=== PATIENT | male | born 1950 | race Caucasian/White ===

== ENCOUNTER 2017-05-05 16:42 | Emergency (ER) | payer MEDICARE ==
[~2017-05-05] VITALS: Ht 180.3 cm; Wt 90.7 kg
[~2017-05-05 16:42] MED LIST: ASPI81EC PO; AZIT500 PO; CHOLESTEROL MED; CLOP75 PO; COLC.6 PO; CYCL10 PO; Coq-10100 MG PO; DIAZ5 PO; DIPH50 PO; ERGO50000 PO; FAMO40 PO; HYDMOR2 PO; HYDR1TAB94 PO; LYSINE; METO50ER PO; MULTIDOPHILUS; NITR.4SL SL; NORT75; OMEP10ER; OXYACE5T PO; PRAV20 PO; ROSU10TA PO; SAW PALMETTO; Saw Palmetto C1 EACH PO; TESTOSTERONE; UBID10 PO; VITAMIN C PO; VITAMIN D 3 PO; Zithromax250 MG PO; [UNRECOGNIZED DRUG - OTHER]
[2017-05-05 17:29] LABS: BASOPHILS ABSOLUTE AUTO 0.05 K/mm3 (0.00-0.23); BASOPHILS PERCENT AUTO 1 % (0-2); EOSINOPHILS ABSOLUTE AUTO 0.11 K/mm3 (0.00-0.68); EOSINOPHILS PERCENT AUTO 2 % (0-6); Hematocrit 46.4 % (37.0-53.0); Hemoglobin 15.2 g/dL (13.5-17.5); IMMATURE GRAN ABSOLUTE AUTO 0.02 K/mm3 (0.00-0.10); IMMATURE GRAN PERCENT AUTO 0 % (0-1); LYMPHOCYTES ABSOLUTE AUTO 1.48 K/mm3 (0.84-5.20); LYMPHOCYTES PERCENT AUTO 21 % (21-46); MONOCYTES ABSOLUTE AUTO 0.68 K/mm3 (0.16-1.47); MONOCYTES PERCENT AUTO 10 % (4-13); Mean Corpuscular HGB 31.5 pg (26.0-34.0); Mean Corpuscular HGB Conc 32.8 g/dL (31.5-36.5); Mean Corpuscular Volume 96 fL (80-100); Mean Platelet Volume 9.1 fL (9.1-12.4); NEUTROPHILS ABSOLUTE AUTO 4.77 K/mm3 (1.96-9.15); NEUTROPHILS PERCENT AUTO 67 % (41-73); Platelet Count 218 K/mm3 (150-400); RDW Coefficient Variation 12.8 % (11.7-14.2); RDW Standard Deviation 45.7 fL (35.1-46.3); Red Blood Cell Count 4.83 M/mm3 (4.30-5.90); White Blood Cell Count 7.11 K/mm3 (4.00-11.30)
[2017-05-05 17:45] LABS: Magnesium, Blood 2.4 mg/dL (1.6-2.4); Troponin I <0.015 ng/mL (0.000-0.040)
[2017-05-05 17:46] LABS: Alanine Aminotransfer (ALT/SGP 29 U/L (12-78); Albumin, Blood 4.1 g/dL (3.4-5.0); Albumin/Globulin Ratio 1.3 (0.8-1.8); Alk Phos 57 U/L (50-136); Anion Gap 9 mmol/L (6-16); Aspartate Aminotrans (AST/SGOT 20 U/L (12-37); Bilirubin, Total 0.3 mg/dL (0.1-1.0); Blood Urea Nitrogen 28 mg/dL (8-24); Bun/Creatinine Ratio 30.8 (12.0-20.0); CO2, Blood 24 mmol/L (21-32); Calcium, Blood 8.9 mg/dL (8.5-10.1); Chloride, Blood 105 mmol/L (98-108); Creatinine, Blood 0.91 mg/dL (0.60-1.20); Globulin, Blood 3.2 g/dL (2.2-4.0); Glomerular Filtration Rate >60 (60-); Glucose, Blood 100 mg/dL (70-99); Sodium, Blood 138 mmol/L (136-145); Total Protein, Blood 7.3 g/dL (6.4-8.2)
[2017-05-05] MEDS ORDERED: Lopressor 25 mg25 MG PO (18:17)
== END 2017-05-05 18:57 | disposition home or self-care (01) ==
LOC: ER 16:42
PROVIDERS: Emergency Medicine
DX: I10 Essential (primary) hypertension (principal); R00.2 Palpitations; Z88.1 Allergy status to other antibiotic agents; Z88.8 Allergy status to other drugs, medicaments and biological substances; Z79.899 Other long term (current) drug therapy; Z79.82 Long term (current) use of aspirin; Z79.891 Long term (current) use of opiate analgesic; I25.2 Old myocardial infarction
CPT/HCPCS: 36415; 71046; 80053; 83735; 83880; 84443; 84484; 85025; 93005; 93010; 99284

== ENCOUNTER 2017-10-02 10:43 | Inpatient (IN) | payer MEDICARE ==
[~2017-10-02] VITALS: Ht 180.3 cm; Wt 94.6 kg
[~2017-10-02 10:43] MED LIST changes: +Lopressor 25 mg25 MG PO
[2017-10-02] MEDS ORDERED: LOSA50 PO (19:21)
[2017-10-02] MEDS ORDERED: ZINC15 PO (19:22)
[2017-10-02] MEDS ORDERED: MONT10T PO (19:22)
[2017-10-02] MEDS ORDERED: VITAMIN B122500 MCG PO (19:23)
[2017-10-02] MEDS ORDERED: ERGO400 PO (19:24)
[2017-10-04 05:39] LABS: International Normalized Ratio 1.02; Prothrombin Time Results 10.5 Sec (9.7-11.5)
== END 2017-10-05 11:15 | disposition home or self-care (01) | DRG 502 ==
LOC: ORSCSDS 10:43 → SURS 10:46 → ORSCSDS 10-05 07:30 → SURS 10-05 11:15
PROVIDERS: Orthopaedic Surgery
PROC: 0LS30ZZ Reposition Right Upper Arm Tendon, Open Approach (ICD-10-PCS; principal; 2017-10-05)
PROC: 0LQ14ZZ Repair Right Shoulder Tendon, Percutaneous Endoscopic Approach (ICD-10-PCS; 2017-10-05)
PROC: 0RHJ04Z Insertion of Internal Fixation Device into Right Shoulder Joint, Open Approach (ICD-10-PCS; 2017-10-05)
PROC: 0RNJ4ZZ Release Right Shoulder Joint, Percutaneous Endoscopic Approach (ICD-10-PCS; 2017-10-05)
DX: M75.111 Incomplete rotator cuff tear or rupture of right shoulder, not specified as traumatic (principal); S46.111A Strain of muscle, fascia and tendon of long head of biceps, right arm, initial encounter; M75.41 Impingement syndrome of right shoulder; M19.011 Primary osteoarthritis, right shoulder; I25.10 Atherosclerotic heart disease of native coronary artery without angina pectoris; K90.0 Celiac disease; I10 Essential (primary) hypertension; E78.00 Pure hypercholesterolemia, unspecified; K21.9 Gastro-esophageal reflux disease without esophagitis; G47.33 Obstructive sleep apnea (adult) (pediatric); Z96.642 Presence of left artificial hip joint; I25.2 Old myocardial infarction; Z95.5 Presence of coronary angioplasty implant and graft; Z86.718 Personal history of other venous thrombosis and embolism; Z87.891 Personal history of nicotine dependence; Z79.02 Long term (current) use of antithrombotics/antiplatelets; Z79.82 Long term (current) use of aspirin; Z79.1 Long term (current) use of non-steroidal anti-inflammatories (NSAID); Z79.899 Other long term (current) drug therapy; Z53.33 Arthroscopic surgical procedure converted to open procedure
CPT/HCPCS: 36415; 85610; 85730; C1713; J0690; J1100; J1885; J2250; J2405; J3010; J3246; J3370; J7120

== ENCOUNTER 2018-04-04 00:15 | Emergency (ER) | payer MEDICARE ==
[~2018-04-04] VITALS: Ht 180.3 cm; Wt 89.8 kg
[~2018-04-04 00:15] MED LIST changes: +ERGO400 PO; +LOSA50 PO; +MONT10T PO; +VITAMIN B122500 MCG PO; +ZINC15 PO
[2018-04-04] MEDS ORDERED: BENZ100A PO (02:53)
== END 2018-04-04 03:36 | disposition home or self-care (01) ==
LOC: ER 00:15
DX: J06.9 Acute upper respiratory infection, unspecified (principal); I25.2 Old myocardial infarction; I10 Essential (primary) hypertension; G89.29 Other chronic pain; M54.9 Dorsalgia, unspecified; Z98.890 Other specified postprocedural states; Z79.82 Long term (current) use of aspirin; Z79.899 Other long term (current) drug therapy; Z88.8 Allergy status to other drugs, medicaments and biological substances; Z96.653 Presence of artificial knee joint, bilateral; Z95.5 Presence of coronary angioplasty implant and graft
CPT/HCPCS: 71046; 99283-25

== ENCOUNTER 2018-09-10 23:44 | Emergency (ER) | payer OTHER, MEDICARE ==
[~2018-09-10] VITALS: Ht 180.3 cm; Wt 91.6 kg
[~2018-09-10 23:44] MED LIST changes: +BENZ100A PO
[2018-09-11] MEDS ORDERED: Norco 5-325 Ta1 EACH PO (01:04)
[2018-09-11] MEDS ORDERED: Robaxin-750750 MG PO (01:04)
== END 2018-09-11 03:14 | disposition home or self-care (01) ==
LOC: ER 23:44
DX: S16.1XXA Strain of muscle, fascia and tendon at neck level, initial encounter (principal); I25.2 Old myocardial infarction; I10 Essential (primary) hypertension; Z88.1 Allergy status to other antibiotic agents; Z91.011 Allergy to milk products; Z79.899 Other long term (current) drug therapy; Z79.01 Long term (current) use of anticoagulants; Z79.82 Long term (current) use of aspirin; Z87.891 Personal history of nicotine dependence; V89.2XXA Person injured in unspecified motor-vehicle accident, traffic, initial encounter
CPT/HCPCS: 70450; 71045; 72125; 96374; 96375; 99284-25; A9270; J1170; J1885; J2405; J3010

== ENCOUNTER 2019-04-18 13:21 | Day surgery (SDC) | payer OTHER, MEDICARE ==
[~2019-04-18] VITALS: Ht 180.3 cm; Wt 97.3 kg
[~2019-04-18 13:21] MED LIST changes: +Norco 5-325 Ta1 EACH PO; +Robaxin-750750 MG PO
[2019-04-18] MEDS ORDERED: ASCO500 PO (14:14)
[2019-04-19] MEDS ORDERED: Norco 5-325 Ta1 EACH PO (00:26)
== END 2019-04-18 16:06 | disposition home or self-care (01) ==
LOC: ORSCSDS 13:21
PROVIDERS: Orthopaedic Surgery
PROC: 01N50ZZ Release Median Nerve, Open Approach (ICD-10-PCS; principal; 2019-04-18 14:30)
DX: G56.02 Carpal tunnel syndrome, left upper limb (principal); I10 Essential (primary) hypertension; G47.33 Obstructive sleep apnea (adult) (pediatric); I25.2 Old myocardial infarction; Z79.01 Long term (current) use of anticoagulants; Z79.82 Long term (current) use of aspirin; Z79.899 Other long term (current) drug therapy
CPT/HCPCS: A9270-GY; J0690; J2250; J2704; J3010; J7120

== ENCOUNTER 2019-04-18 23:58 | Emergency (ER) | payer OTHER, MEDICARE ==
[~2019-04-18] VITALS: Ht 180.3 cm; Wt 93.0 kg
[~2019-04-18 23:58] MED LIST changes: +ASCO500 PO
[2019-04-19] MEDS ORDERED: Norco 5-325 Ta1 EACH PO (00:26)
== END 2019-04-19 02:35 | disposition home or self-care (01) ==
LOC: ER 23:58
DX: G89.18 Other acute postprocedural pain (principal); M79.642 Pain in left hand; Z88.1 Allergy status to other antibiotic agents; Z88.8 Allergy status to other drugs, medicaments and biological substances; Z79.899 Other long term (current) drug therapy; Z87.891 Personal history of nicotine dependence
CPT/HCPCS: 96372; 99283; J1170

== ENCOUNTER 2019-08-22 11:52 | Day surgery (SDC) | payer MEDICARE | END 2019-08-22 15:45 | disposition home or self-care (01) | PROVIDERS: Orthopaedic Surgery | PROC: 01N50ZZ Release Median Nerve, Open Approach (ICD-10-PCS; principal; 2019-08-22 13:00) | DX: G56.01 Carpal tunnel syndrome, right upper limb (principal); I10 Essential (primary) hypertension; E78.5 Hyperlipidemia, unspecified; G47.33 Obstructive sleep apnea (adult) (pediatric); Z87.891 Personal history of nicotine dependence; I25.2 Old myocardial infarction; Z79.899 Other long term (current) drug therapy; I25.10 Atherosclerotic heart disease of native coronary artery without angina pectoris; Z79.01 Long term (current) use of anticoagulants; Z79.82 Long term (current) use of aspirin ==

== ENCOUNTER 2021-09-04 08:05 | Day surgery (SDC) | payer MEDICARE ==
[~2021-09-04] VITALS: Ht 180.3 cm; Wt 200.0 kg
[~2021-09-04 08:05] MED LIST changes: +AMOCLA875 PO; +ASPI81CH PO; +ATOR40TA PO; +Amoxicillin500 MG PO; +B COMPLEX FORM0.4 MG PO; +C COMPLEX1000 M1 PO; +CENTRUM SILVER1 EAC2 PO; +CO Q10100 MG PO; +DAPS100 PO; +DOXY100 PO; +Lopressor 50 mg50 MG PO; +Saw Palmetto160 MG PO; +VITAMIN D3 PO; +ZINC PO
--- NOTE | 2021-09-04 10:33 | NUR ---
PT TAKEN TO LAB BY DHRUV BERRIOS.
--- NOTE | 2021-09-04 12:03 | NUR ---
PT RETURNED TO RECOVERY ROOM IN [facility]. RIGHT RADIAL TR BAND SITE SOFT NON-TENDER WITH WITH NO HEMATOMA, NO PULSATILE BLEEDING AND WRIST BOARD IN PLACE. PT DENIES CHEST PAIN. CALL LIGHT IN REACH. PT'S AND SON IN ROOM.
--- NOTE | 2021-09-04 14:00 | NUR ---
11 CC OF AIR REMOVED OVER 15 MIN OUT OF NOW DEFLATED RIGHT TR BAND SITE; SOFT NON-TENDER WITH NO HEMATOMA, NO PULSATILE BLEEDING. PT DENIES CHEST PAIN.
--- NOTE | 2021-09-04 14:15 | NUR ---
NO CHANGES TO DEFLATED RIGHT TR BAND.
--- NOTE | 2021-09-04 14:24 | NUR ---
NO CHANGES TO DEFLATED RIGHT TR BAND SITE
--- NOTE | 2021-09-04 14:42 | NUR ---
DEFLATED RIGHT TR BAND REMOVED AND POLYMEM PLACED OVER RIGHT RADIAL SITE WITH WRIST BOARD IN PLACE; SOFT WITH NO HEMATOMA, NO PULSATILE BLEEDING. 20 G IV REMOVED FROM LEFT AC WITH INTACT DRESSING. PT AMBULATED TO TO VOID.
--- NOTE | 2021-09-04 14:50 | NUR ---
NO CHANGES TO RIGHT RADIAL SITE; PT ESCORTED OUT VIA WHEELCHAIR ESCORT.
== END 2021-09-04 15:03 | disposition home or self-care (01) ==
LOC: MHTC 08:05
DX: I25.118 Atherosclerotic heart disease of native coronary artery with other forms of angina pectoris (principal); R06.02 Shortness of breath; R94.39 Abnormal result of other cardiovascular function study; Z79.01 Long term (current) use of anticoagulants; I10 Essential (primary) hypertension; Z88.1 Allergy status to other antibiotic agents; Z79.82 Long term (current) use of aspirin; E78.5 Hyperlipidemia, unspecified; G47.33 Obstructive sleep apnea (adult) (pediatric)
CPT/HCPCS: 76937; 85347; 93454; 99152; 99153; C1725; C1769; C1874; C1887; C1894; C9600; J1644; J2250; J3010; J7030; J7040; Q9967

== ENCOUNTER 2022-03-02 17:07 | Emergency (ER) | payer MEDICARE ==
[~2022-03-02 17:07] MED LIST changes: +ASCO500; +CLOP75; +CO Q10100 MG; +Percocet 5-3251 EACH PO; +SAMBUCUS E50 MG/5 ML; +Saw Palmetto160 MG; +VITAMIN D310 MC4; +ZINC15
[2022-03-02] MEDS ORDERED: BENZ100A PO (21:43)
[2022-03-02] MEDS ORDERED: Ventolin5 MG/1 ML INH (21:43)
== END 2022-03-02 21:56 | disposition home or self-care (01) ==
DX: J10.1 Influenza due to other identified influenza virus with other respiratory manifestations (principal); I25.10 Atherosclerotic heart disease of native coronary artery without angina pectoris; I10 Essential (primary) hypertension; I25.2 Old myocardial infarction; E78.5 Hyperlipidemia, unspecified; Z95.5 Presence of coronary angioplasty implant and graft; Z87.891 Personal history of nicotine dependence; Z20.822 Contact with and (suspected) exposure to COVID-19; Z79.82 Long term (current) use of aspirin; Z79.899 Other long term (current) drug therapy; Z88.1 Allergy status to other antibiotic agents; Z88.8 Allergy status to other drugs, medicaments and biological substances

== ENCOUNTER 2022-08-27 12:20 | Day surgery (SDC) | payer MEDICARE, BC ==
[~2022-08-27] VITALS: Ht 180.3 cm; Wt 88.9 kg
[~2022-08-27 12:20] MED LIST changes: +ALBU90OI INH; +Ventolin5 MG/1 ML INH
[2022-08-27 14:41] VITALS: BP 95/68
== END 2022-08-27 14:43 | disposition home or self-care (01) ==
LOC: ORSCSDS 12:20
PROVIDERS: Internal Medicine Gastroenterology
PROC: 0DJD8ZZ Inspection of Lower Intestinal Tract, Via Natural or Artificial Opening Endoscopic (ICD-10-PCS; principal; 2022-08-27 13:45)
PROC: 0DB68ZX Excision of Stomach, Via Natural or Artificial Opening Endoscopic, Diagnostic (ICD-10-PCS; principal; 2022-08-27 13:45)
DX: K21.9 Gastro-esophageal reflux disease without esophagitis (principal); R13.14 Dysphagia, pharyngoesophageal phase; Z12.11 Encounter for screening for malignant neoplasm of colon; K29.70 Gastritis, unspecified, without bleeding; G47.33 Obstructive sleep apnea (adult) (pediatric); K57.30 Diverticulosis of large intestine without perforation or abscess without bleeding; K64.8 Other hemorrhoids; I25.10 Atherosclerotic heart disease of native coronary artery without angina pectoris; Z79.02 Long term (current) use of antithrombotics/antiplatelets; I10 Essential (primary) hypertension; E78.00 Pure hypercholesterolemia, unspecified; I25.2 Old myocardial infarction; Z79.899 Other long term (current) drug therapy
CPT/HCPCS: 43239; G0121; 88305; 88313; 88342; J2704; J7120

== ENCOUNTER 2024-09-29 10:40 | Day surgery (SDC) | payer MEDICARE, OTHER ==
[~2024-09-29] VITALS: Ht 180.3 cm; Wt 96.3 kg
[~2024-09-29 10:40] MED LIST changes: +GUAI600T33 PO; +Lactated Ringer's 1,000 ML IV ONE; +PSEU120ER PO; +propofoL 50 ML IV ONE
[2024-09-29] MEDS ORDERED: Lactated Ringer's 1,000 ML IV ONE (12:41)
[2024-09-29 14:04] VITALS: BP 129/78
== END 2024-09-29 14:10 | disposition home or self-care (01) ==
LOC: ORSCSDS 10:40
PROVIDERS: Specialist
PROC: 0DB58ZX Excision of Esophagus, Via Natural or Artificial Opening Endoscopic, Diagnostic (ICD-10-PCS; principal; 2024-09-29 12:30)
PROC: 0DB68ZX Excision of Stomach, Via Natural or Artificial Opening Endoscopic, Diagnostic (ICD-10-PCS; principal; 2024-09-29 12:30)
PROC: 0D758ZZ Dilation of Esophagus, Via Natural or Artificial Opening Endoscopic (ICD-10-PCS; principal; 2024-09-29 12:30)
DX: R13.10 Dysphagia, unspecified (principal); K29.50 Unspecified chronic gastritis without bleeding; K90.0 Celiac disease; F41.9 Anxiety disorder, unspecified; I25.10 Atherosclerotic heart disease of native coronary artery without angina pectoris; K21.9 Gastro-esophageal reflux disease without esophagitis; E78.5 Hyperlipidemia, unspecified; I10 Essential (primary) hypertension; Z79.02 Long term (current) use of antithrombotics/antiplatelets; G47.33 Obstructive sleep apnea (adult) (pediatric); Z79.899 Other long term (current) drug therapy
CPT/HCPCS: 88305; 88342; C1769; J2704; J7120